=== PATIENT | male | born 1985 | race Hispanic/Latino ===

== ENCOUNTER 2020-05-29 16:20 | Inpatient (IN) | payer BC ==
[~2020-05-29] VITALS: Ht 152.4 cm; Wt 65.8 kg
[2020-05-29 17:06] LABS: BASOPHILS % (AUTO) 0.2 % (0.0-5.0); HEMATOCRIT 39.2 % (42-54); LYMPHOCYTES % (AUTO) 8.2 % (21.0-51.0); MEAN CORPUSCULAR HEMOGLOBIN 27.1 pg (27.0-33.0); MEAN CORPUSCULAR HGB CONC 32.9 g/dL (32.0-36.0); MEAN CORPUSCULAR VOLUME 82.4 fL (79-99); MONOCYTES % (AUTO) 4.2 % (3.0-13.0); NEUTROPHILS % (AUTO) 85.8 % (40.0-77.0); PLATELET COUNT (AUTO) 673 K/uL (130-400); RED BLOOD CELL COUNT(AUTO) 4.76 MIL/uL (4.50-6.20); RED CELL DISTRIBUTION WIDTH 12.3 % (11.0-15.5); WHITE BLOOD COUNT (AUTO) 17.8 K/uL (4.8-10.8)
[2020-05-29 17:22] LABS: CREATININE 3.8 mg/dL (0.5-1.5)
[2020-05-29 17:26] LABS: ALBUMIN 1.2 g/dL (3.5-5.0); BILIRUBIN,TOTAL 0.2 mg/dL (0.2-1.0)
[2020-05-29 17:27] LABS: INR 0.95 (0.85-1.15); PROTHROMBIN TIME 10.4 SEC (9.6-11.6)
[2020-05-29 17:29] LABS: PARTIAL THROMBOPLASTIN TIME 27.3 SEC (26.3-35.5)
[2020-05-29] MEDS ORDERED: ENOXAPARIN SODIUM 80 MG/0.8 ML SQ ONE (18:44)
[2020-05-29] MEDS ORDERED: DEXAMETHASONE SOD PHOSPHATE 10MG/ML 1ML VIAL ONE (18:45)
[2020-05-29] MEDS ORDERED: CEFTRIAXONE 1G VIAL ONE (18:45)
[2020-05-29] MEDS ORDERED: AZITHROMYCIN 500MG+NS 250ML 250 ML IV ONE (18:45)
[2020-05-29] MEDS ORDERED: INSULIN HUMULIN R 100 UNIT/ML 3ML ONE (18:46)
[2020-05-29] MEDS ORDERED: ONDANSETRON 4MG INJ ONE (19:03)
[2020-05-29 19:19] LABS: CRP QUANTITATIVE 190.5 mg/L (0.00-9.0)
[2020-05-29] MEDS ORDERED: GUAIFENESIN-DM 200/20 MG 10 ML PO PRN (19:30)
[2020-05-29] MEDS ORDERED: ONDANSETRON 4MG INJ IV PRN (19:30)
[2020-05-29] MEDS ORDERED: DiphenhydrAMINE HCL 50 MG/ML VIAL IV PRN (19:30)
[2020-05-29] MEDS ORDERED: ALBUTEROL 0.083% 2.5 MG/3 ML INH IH PRN (19:30)
[2020-05-29] MEDS ORDERED: ACETAMINOPHEN 325 MG TAB PO PRN ×2 (19:30)
[2020-05-29] MEDS ORDERED: NITROGLYCERIN 0.4 MG SL TAB SL PRN (19:30)
[2020-05-29] MEDS ORDERED: LACTULOSE 20 GM/30 ML UDCUP PO PRN (19:30)
[2020-05-29] MEDS ORDERED: MAG/ALUM/SIMETH 30 ML UDCUP PO PRN (19:30)
[2020-05-29] MEDS ORDERED: 0.9%NACL 1000ML 1,000 ML IV SCH (19:30)
[2020-05-29] MEDS ORDERED: DIPHENHYDRAMINE HCL 25 MG CAPSULE PO PRN (19:30)
[2020-05-29] MEDS ORDERED: CEFEPIME HCL 1 GM VIAL ONE (20:51)
[2020-05-29] MEDS ORDERED: DOXYCYCLINE 100MG+NS 250ML 250 ML IV ONE (20:52)
[2020-05-29] MEDS ORDERED: ERGOCALCIFEROL (VITAMIN D2) 50,000 UNIT CAPSULE PO SCH (21:16)
[2020-05-29 22:10] VITALS: BP 124/77
[2020-05-29] MEDS: INSULIN GLARGINE 100 UNITS/ML 10 ML VIAL SQ SCH (22:30)
[2020-05-29] MEDS: HEPARIN 5,000 UNIT VIAL SQ SCH (22:30)
[2020-05-29] MEDS ORDERED: DEXTROSE 50%-WATER 50 ML DISP.SYRIN IV PRN (22:30)
[2020-05-29] MEDS: FAMOTIDINE 20MG VIAL IV SCH (22:30)
[2020-05-29] MEDS ORDERED: GLUCAGON 1MG KIT 1 MG ML IM PRN (22:30)
[2020-05-29] MEDS: ASCORBIC ACID 500 MG TAB PO SCH (22:30)
[2020-05-29] MEDS: ACETYLCYSTEINE 600 MG CAPSULE PO SCH (22:30)
[2020-05-30 00:09] VITALS: BP 151/81
[2020-05-30 03:58] LABS: BASOPHILS % (AUTO) 0.1 % (0.0-5.0); HEMATOCRIT 34.7 % (42-54); LYMPHOCYTES % (AUTO) 7.6 % (21.0-51.0); MEAN CORPUSCULAR HEMOGLOBIN 27.2 pg (27.0-33.0); MEAN CORPUSCULAR HGB CONC 33.1 g/dL (32.0-36.0); MONOCYTES % (AUTO) 2.4 % (3.0-13.0); NEUTROPHILS % (AUTO) 88.7 % (40.0-77.0); PLATELET COUNT (AUTO) 628 K/uL (130-400); RED BLOOD CELL COUNT(AUTO) 4.23 MIL/uL (4.50-6.20); RED CELL DISTRIBUTION WIDTH 12.1 % (11.0-15.5); WHITE BLOOD COUNT (AUTO) 14.9 K/uL (4.8-10.8)
[2020-05-30 04:13] VITALS: BP 138/78
[2020-05-30 04:28] LABS: BILIRUBIN,TOTAL 0.2 mg/dL (0.2-1.0); CREATININE 3.5 mg/dL (0.5-1.5); CRP QUANTITATIVE 106.1 mg/L (0.00-9.0); POTASSIUM 4.4 mmol/L (3.5-5.1); TOTAL PROTEIN, SERUM 5.8 g/dL (6.0-8.3)
[2020-05-30] MEDS: INSULIN HUMULIN R 100 UNIT/ML 3ML SQ SCH ×4 (05:37→21:15)
[2020-05-30] MEDS: DEXAMETHASONE SOD PHOSPHATE 4 MG/ML 1ML VIAL IVP SCH ×2 (05:38→17:01)
[2020-05-30 07:47] VITALS: BP 134/83
[2020-05-30] MEDS: FAMOTIDINE 20MG VIAL IV SCH ×2 (08:02→20:59)
[2020-05-30] MEDS: DOXYCYCLINE 100MG+NS 250ML 250 ML IV SCH ×2 (08:02→20:59)
[2020-05-30] MEDS: THIAMINE HCL 100 MG/ML 2ML VIAL IVP SCH (08:03)
[2020-05-30] MEDS: CEFEPIME HCL 2 GM VIAL IVP SCH ×2 (08:04→21:02)
[2020-05-30] MEDS: ACETYLCYSTEINE 600 MG CAPSULE PO SCH ×2 (08:04→21:04)
[2020-05-30] MEDS: ZINC SULFATE 220 CAPSULE PO SCH (08:04)
[2020-05-30] MEDS: ASCORBIC ACID 500 MG TAB PO SCH ×3 (08:28→21:05)
[2020-05-30] MEDS: HEPARIN 5,000 UNIT VIAL SQ SCH ×3 (08:29→21:16)
[2020-05-30] MEDS ORDERED: PHARMACY COMMUNICATION MISC SCH (10:15)
[2020-05-30] MEDS ORDERED: INSULIN GLARGINE 100 UNITS/ML 10 ML VIAL SQ SCH (11:15)
[2020-05-30 12:00] VITALS: BP 136/84
[2020-05-30 15:16] LABS: APPEARANCE,URINE Cloudy (CLEAR); BILIRUBIN,URINE Negative (NEGATIVE); COLOR,URINE Yellow (YELLOW); GLUCOSE, URINE (UA) >=1000 mg/dL (NEGATIVE); KETONES,URINE Negative (NEGATIVE); LEUKOCYTE ESTERASE ,URINE Negative (NEGATIVE); NITRATE,URINE Negative (NEGATIVE); OCCULT BLOOD,URINE Small (NEGATIVE); PROTEIN,URINE 300 mg/dL (NEGATIVE); UROBILINOGEN,URINE 0.2 mg/dL (0.2-1.0)
[2020-05-30 15:47] LABS: BACTERIA,URINE Few /HPF (None Seen); MUCUS,URINE Few LPF (None Seen); SQUAMOUS EPITHELIAL CELL,UR Few /HPF (0-2); YEAST,URINE BUDDING Moderate /HPF (None Seen)
[2020-05-30 16:00] VITALS: BP 135/95
[2020-05-30 17:24] LABS: THYROID STIMULATING HORMONE 0.58 uIU/mL (0.36-3.74); URIC ACID 11.1 mg/dL (2.6-7.2)
[2020-05-30 17:43] LABS: CHLORIDE,URINE RANDOM 41 mmol/L (110-250); POTASSIUM,URINE RANDOM 24 mmol/L (25-125); SODIUM,URINE RANDOM 17 mmol/l (40-220)
[2020-05-30] MEDS ORDERED: TOCILIZUMAB IV SCH (18:00)
[2020-05-30] MEDS ORDERED: [UNRECOGNIZED DRUG - OTHER] IV SCH (18:00)
[2020-05-30] MEDS ORDERED: TOCILIZUMAB IV ONE (18:00)
[2020-05-30 20:00] VITALS: BP 140/83
[2020-05-30] MEDS: INSULIN GLARGINE 100 UNITS/ML 10 ML VIAL SQ SCH (21:16)
[2020-05-31] VITALS (7 sets, daily range): BP systolic 132–151; BP diastolic 75–87
[2020-05-31 04:33] LABS: BASOPHILS % (AUTO) 0.2 % (0.0-5.0); HEMATOCRIT 35.3 % (42-54); LYMPHOCYTES % (AUTO) 5.7 % (21.0-51.0); MEAN CORPUSCULAR HGB CONC 34.6 g/dL (32.0-36.0); MONOCYTES % (AUTO) 4.3 % (3.0-13.0); NEUTROPHILS % (AUTO) 88.1 % (40.0-77.0); NUCLEATED RED BLOOD CELLS 0.1 % (0.0-0.19); RED BLOOD CELL COUNT(AUTO) 4.36 MIL/uL (4.50-6.20); WHITE BLOOD COUNT (AUTO) 16.2 K/uL (4.8-10.8)
[2020-05-31 04:36] LABS: PLATELET COUNT (AUTO) 707 K/uL (130-400)
[2020-05-31 04:56] LABS: ALBUMIN 1.1 g/dL (3.5-5.0); BILIRUBIN,TOTAL 0.2 mg/dL (0.2-1.0); CREATININE 2.6 mg/dL (0.5-1.5); CRP QUANTITATIVE 61.9 mg/L (0.00-9.0); POTASSIUM 4.3 mmol/L (3.5-5.1)
[2020-05-31] MEDS: DEXAMETHASONE SOD PHOSPHATE 4 MG/ML 1ML VIAL IVP SCH (05:13)
[2020-05-31] MEDS: INSULIN HUMULIN R 100 UNIT/ML 3ML SQ SCH ×4 (06:48→21:00)
[2020-05-31] MEDS: CEFEPIME HCL 2 GM VIAL IVP SCH ×2 (08:00→21:19)
[2020-05-31] MEDS: HEPARIN 5,000 UNIT VIAL SQ SCH ×3 (08:01→21:27)
[2020-05-31] MEDS: THIAMINE HCL 100 MG/ML 2ML VIAL IVP SCH (08:03)
[2020-05-31] MEDS: FAMOTIDINE 20MG VIAL IV SCH ×2 (08:03→21:14)
[2020-05-31] MEDS: DOXYCYCLINE 100MG+NS 250ML 250 ML IV SCH ×2 (08:03→21:14)
[2020-05-31] MEDS: ACETYLCYSTEINE 600 MG CAPSULE PO SCH ×2 (08:03→21:20)
[2020-05-31] MEDS: ZINC SULFATE 220 CAPSULE PO SCH (08:03)
[2020-05-31] MEDS: ASCORBIC ACID 500 MG TAB PO SCH ×3 (08:04→21:25)
[2020-05-31] MEDS: INSULIN GLARGINE 100 UNITS/ML 10 ML VIAL SQ SCH ×2 (09:05→21:33)
[2020-05-31] MEDS: INSULIN LISPRO 100 UNIT/ML 3ML SQ SCH ×2 (11:51→17:41)
[2020-06-01 04:28] VITALS: BP 136/75
[2020-06-01 04:49] LABS: BASOPHILS % (AUTO) 0.1 % (0.0-5.0); EOSINOPHILS % (AUTO) 0.1 % (0.0-8.0); HEMATOCRIT 35.3 % (42-54); LYMPHOCYTES % (AUTO) 9.2 % (21.0-51.0); MEAN CORPUSCULAR HEMOGLOBIN 27.4 pg (27.0-33.0); MEAN CORPUSCULAR HGB CONC 33.7 g/dL (32.0-36.0); MEAN CORPUSCULAR VOLUME 81.1 fL (79-99); MONOCYTES % (AUTO) 4.5 % (3.0-13.0); NEUTROPHILS % (AUTO) 84.3 % (40.0-77.0); NUCLEATED RED BLOOD CELLS 0.1 % (0.0-0.19); RED BLOOD CELL COUNT(AUTO) 4.35 MIL/uL (4.50-6.20); RED CELL DISTRIBUTION WIDTH 12.2 % (11.0-15.5); WHITE BLOOD COUNT (AUTO) 14.4 K/uL (4.8-10.8)
[2020-06-01 04:51] LABS: PLATELET COUNT (AUTO) 729 K/uL (130-400)
[2020-06-01 05:15] LABS: ALBUMIN 1.1 g/dL (3.5-5.0); BILIRUBIN,TOTAL 0.2 mg/dL (0.2-1.0); CREATININE 2.2 mg/dL (0.5-1.5); CRP QUANTITATIVE 28.3 mg/L (0.00-9.0); POTASSIUM 3.5 mmol/L (3.5-5.1); TOTAL PROTEIN, SERUM 5.4 g/dL (6.0-8.3)
[2020-06-01] MEDS: INSULIN HUMULIN R 100 UNIT/ML 3ML SQ SCH ×4 (06:45→20:40)
[2020-06-01] MEDS: INSULIN LISPRO 100 UNIT/ML 3ML SQ SCH ×3 (06:53→16:22)
[2020-06-01 08:00] VITALS: BP 132/76
[2020-06-01] MEDS: DOXYCYCLINE 100MG+NS 250ML 250 ML IV SCH ×2 (08:33→20:38)
[2020-06-01] MEDS: DEXAMETHASONE SOD PHOSPHATE 4 MG/ML 1ML VIAL IVP SCH (08:34)
[2020-06-01] MEDS: FAMOTIDINE 20MG VIAL IV SCH ×2 (08:35→20:38)
[2020-06-01] MEDS: THIAMINE HCL 100 MG/ML 2ML VIAL IVP SCH (08:36)
[2020-06-01] MEDS: CEFEPIME HCL 2 GM VIAL IVP SCH ×2 (08:37→20:38)
[2020-06-01] MEDS: ACETYLCYSTEINE 600 MG CAPSULE PO SCH ×2 (08:39→20:38)
[2020-06-01] MEDS: ZINC SULFATE 220 CAPSULE PO SCH (08:39)
[2020-06-01] MEDS: ASCORBIC ACID 500 MG TAB PO SCH ×3 (08:40→20:38)
[2020-06-01] MEDS: INSULIN GLARGINE 100 UNITS/ML 10 ML VIAL SQ SCH ×2 (09:02→20:40)
[2020-06-01] MEDS: HEPARIN 5,000 UNIT VIAL SQ SCH ×3 (09:02→20:39)
[2020-06-01 12:00] VITALS: BP 124/85
[2020-06-01 16:00] VITALS: BP 131/85
[2020-06-01 20:00] VITALS: BP 129/77
[2020-06-02 03:51] LABS: BASOPHILS % (AUTO) 0.2 % (0.0-5.0); EOSINOPHILS % (AUTO) 0.7 % (0.0-8.0); HEMATOCRIT 37.2 % (42-54); LYMPHOCYTES % (AUTO) 11.1 % (21.0-51.0); MEAN CORPUSCULAR HEMOGLOBIN 27.7 pg (27.0-33.0); MEAN CORPUSCULAR HGB CONC 33.6 g/dL (32.0-36.0); MEAN CORPUSCULAR VOLUME 82.3 fL (79-99); MONOCYTES % (AUTO) 4.2 % (3.0-13.0); NEUTROPHILS % (AUTO) 81.3 % (40.0-77.0); RED BLOOD CELL COUNT(AUTO) 4.52 MIL/uL (4.50-6.20); RED CELL DISTRIBUTION WIDTH 12.4 % (11.0-15.5)
[2020-06-02 04:00] VITALS: BP 149/73
[2020-06-02 04:11] LABS: CREATININE 1.8 mg/dL (0.5-1.5); MAGNESIUM 1.6 mg/dL (1.80-2.40); POTASSIUM 3.2 mmol/L (3.5-5.1)
[2020-06-02 04:21] LABS: PLATELET COUNT (AUTO) 779 K/uL (130-400)
[2020-06-02 04:44] LABS: PLATELET MORPHOLOGY COMMENT MARKED INCREASE
[2020-06-02] MEDS: INSULIN HUMULIN R 100 UNIT/ML 3ML SQ SCH ×4 (06:15→20:29)
[2020-06-02] MEDS: INSULIN LISPRO 100 UNIT/ML 3ML SQ SCH ×3 (06:15→16:59)
[2020-06-02 08:00] VITALS: BP 104/82
[2020-06-02] MEDS: DOXYCYCLINE 100MG+NS 250ML 250 ML IV SCH (09:00)
[2020-06-02] MEDS: ZINC SULFATE 220 CAPSULE PO SCH (09:42)
[2020-06-02] MEDS: ACETYLCYSTEINE 600 MG CAPSULE PO SCH (09:42)
[2020-06-02] MEDS: ASCORBIC ACID 500 MG TAB PO SCH ×3 (09:43→20:18)
[2020-06-02] MEDS: HEPARIN 5,000 UNIT VIAL SQ SCH ×3 (09:44→20:18)
[2020-06-02] MEDS: CEFEPIME HCL 2 GM VIAL IVP SCH ×2 (09:44→20:18)
[2020-06-02] MEDS: THIAMINE HCL 100 MG/ML 2ML VIAL IVP SCH (09:45)
[2020-06-02] MEDS: DEXAMETHASONE SOD PHOSPHATE 4 MG/ML 1ML VIAL IVP SCH (09:45)
[2020-06-02] MEDS: FAMOTIDINE 20MG VIAL IV SCH (09:48)
[2020-06-02] MEDS: INSULIN GLARGINE 100 UNITS/ML 10 ML VIAL SQ SCH (10:39)
[2020-06-02] MEDS ORDERED: MAGNESIUM 2GM PREMIX 50ML 50 ML IV PRN (11:30)
[2020-06-02 12:00] VITALS: BP 145/85
[2020-06-02] MEDS: POTASSIUM CHLORIDE 10% ELIXIR 20 MEQ/15 ML UDCUP PO PRN ×2 (12:08→14:33)
[2020-06-02 16:00] VITALS: BP 140/80
[2020-06-02 20:00] VITALS: BP 129/73
[2020-06-03 04:00] VITALS: BP 159/83
[2020-06-03 04:37] LABS: BASOPHILS % (AUTO) 0.3 % (0.0-5.0); EOSINOPHILS % (AUTO) 3.4 % (0.0-8.0); HEMATOCRIT 35.9 % (42-54); LYMPHOCYTES % (AUTO) 12.2 % (21.0-51.0); MEAN CORPUSCULAR HEMOGLOBIN 27.3 pg (27.0-33.0); MEAN CORPUSCULAR HGB CONC 33.4 g/dL (32.0-36.0); MEAN CORPUSCULAR VOLUME 81.8 fL (79-99); MONOCYTES % (AUTO) 2.4 % (3.0-13.0); NEUTROPHILS % (AUTO) 78.7 % (40.0-77.0); RED BLOOD CELL COUNT(AUTO) 4.39 MIL/uL (4.50-6.20); RED CELL DISTRIBUTION WIDTH 12.7 % (11.0-15.5); WHITE BLOOD COUNT (AUTO) 15.8 K/uL (4.8-10.8)
[2020-06-03 04:39] LABS: PLATELET COUNT (AUTO) 705 K/uL (130-400)
[2020-06-03 04:46] LABS: APPEARANCE,URINE Cloudy (CLEAR); BILIRUBIN,URINE Negative (NEGATIVE); COLOR,URINE Yellow (YELLOW); GLUCOSE, URINE (UA) 500 mg/dL (NEGATIVE); KETONES,URINE Negative (NEGATIVE); LEUKOCYTE ESTERASE ,URINE Negative (NEGATIVE); NITRATE,URINE Negative (NEGATIVE); OCCULT BLOOD,URINE Negative (NEGATIVE); PROTEIN,URINE >=1000 mg/dL (NEGATIVE); UROBILINOGEN,URINE 0.2 mg/dL (0.2-1.0)
[2020-06-03 04:51] LABS: CREATININE 1.4 mg/dL (0.5-1.5); MAGNESIUM 1.9 mg/dL (1.80-2.40); POTASSIUM 3.9 mmol/L (3.5-5.1)
[2020-06-03 05:04] LABS: RBC,URINE None Seen /HPF (0-1)
[2020-06-03 05:05] LABS: AMORPHOUS SEDIMENT,UR Many /LPF (None Seen); BACTERIA,URINE Few /HPF (None Seen); MUCUS,URINE Few LPF (None Seen); SQUAMOUS EPITHELIAL CELL,UR Few /HPF (0-2); YEAST,URINE BUDDING Moderate /HPF (None Seen)
[2020-06-03 05:37] LABS: CRP QUANTITATIVE 13.2 mg/L (0.00-9.0)
[2020-06-03] MEDS: INSULIN LISPRO 100 UNIT/ML 3ML SQ SCH ×3 (06:09→16:42)
[2020-06-03] MEDS: INSULIN HUMULIN R 100 UNIT/ML 3ML SQ SCH ×4 (06:10→20:45)
[2020-06-03 08:00] VITALS: BP 135/78
[2020-06-03] MEDS: THIAMINE HCL 100 MG/ML 2ML VIAL IVP SCH (08:43)
[2020-06-03] MEDS: DEXAMETHASONE SOD PHOSPHATE 4 MG/ML 1ML VIAL IVP SCH (08:44)
[2020-06-03] MEDS: ASCORBIC ACID 500 MG TAB PO SCH (08:45)
[2020-06-03] MEDS: ZINC SULFATE 220 CAPSULE PO SCH (08:46)
[2020-06-03] MEDS ORDERED: FAMOTIDINE 20MG TAB PO SCH (09:00)
[2020-06-03] MEDS ORDERED: INSULIN GLARGINE 100 UNITS/ML 10 ML VIAL SQ SCH ×2 (09:00→12:30)
[2020-06-03] MEDS: CEFEPIME HCL 2 GM VIAL IVP SCH (09:00)
[2020-06-03] MEDS: ENOXAPARIN SODIUM 30 MG/0.3 ML SQ SCH ×2 (11:22→20:36)
[2020-06-03 12:00] VITALS: BP 152/81
[2020-06-03] MEDS ORDERED: DOCUSATE SODIUM 100 MG CAP PO SCH (12:15)
[2020-06-03] MEDS: SENNOSIDES 8.6 MG TABLET PO SCH (12:16)
[2020-06-03] MEDS ORDERED: POLYETHYLENE GLYCOL 3350 17 GM POWD.PACK PO SCH (12:16)
[2020-06-03] MEDS: PANTOPRAZOLE 40 MG TAB DR PO SCH (12:17)
[2020-06-03] MEDS: MAGNESIUM OXIDE 400 MG TABLET PO SCH (12:23)
[2020-06-03] MEDS: SODIUM CHLORIDE 30 ML DROPS NS SCH ×2 (15:12→20:33)
[2020-06-03 16:00] VITALS: BP 158/82
[2020-06-03] MEDS ORDERED: PHARMACY COMMUNICATION MISC SCH (16:00)
[2020-06-03 20:00] VITALS: BP 141/77
[2020-06-03] MEDS ORDERED: REMDESIVIR (EUA) 520 200 MG in 0.9% NACL 250ML 250 ML IV ONE (20:00)
[2020-06-03] MEDS ORDERED: COMPOUND IV REFRIGERATED 1 EACH IVSOLN MISC PRN (20:00)
[2020-06-03] MEDS: FLUTICASONE PROPIONATE 50MCG/SPRAY 16 GM BOTTLE EN SCH (20:33)
[2020-06-04 03:41] LABS: BASOPHILS % (AUTO) 0.1 % (0.0-5.0); EOSINOPHILS % (AUTO) 3.2 % (0.0-8.0); HEMATOCRIT 35.2 % (42-54); LYMPHOCYTES % (AUTO) 5.9 % (21.0-51.0); MEAN CORPUSCULAR HEMOGLOBIN 27.9 pg (27.0-33.0); MEAN CORPUSCULAR HGB CONC 34.1 g/dL (32.0-36.0); MEAN CORPUSCULAR VOLUME 81.9 fL (79-99); MONOCYTES % (AUTO) 2.6 % (3.0-13.0); NEUTROPHILS % (AUTO) 85.9 % (40.0-77.0); PLATELET COUNT (AUTO) 645 K/uL (130-400); RED CELL DISTRIBUTION WIDTH 12.9 % (11.0-15.5); WHITE BLOOD COUNT (AUTO) 15.2 K/uL (4.8-10.8)
[2020-06-04 04:00] VITALS: BP 133/77
[2020-06-04 04:00] LABS: CREATININE 1.6 mg/dL (0.5-1.5); CRP QUANTITATIVE 10.9 mg/L (0.00-9.0); POTASSIUM 4.8 mmol/L (3.5-5.1)
[2020-06-04] MEDS: INSULIN LISPRO 100 UNIT/ML 3ML SQ SCH ×3 (05:48→16:56)
[2020-06-04] MEDS: INSULIN HUMULIN R 100 UNIT/ML 3ML SQ SCH ×4 (05:48→21:06)
[2020-06-04 08:00] VITALS: BP 123/76
[2020-06-04] MEDS: INSULIN GLARGINE 100 UNITS/ML 10 ML VIAL SQ SCH (08:13)
[2020-06-04] MEDS: MAGNESIUM OXIDE 400 MG TABLET PO SCH (08:19)
[2020-06-04] MEDS: SENNOSIDES 8.6 MG TABLET PO SCH (08:19)
[2020-06-04] MEDS: PANTOPRAZOLE 40 MG TAB DR PO SCH (08:19)
[2020-06-04] MEDS: SODIUM CHLORIDE 30 ML DROPS NS SCH ×3 (08:19→20:52)
[2020-06-04] MEDS: FLUTICASONE PROPIONATE 50MCG/SPRAY 16 GM BOTTLE EN SCH ×2 (08:19→20:52)
[2020-06-04] MEDS: DEXAMETHASONE SOD PHOSPHATE 4 MG/ML 1ML VIAL IVP SCH (08:20)
[2020-06-04] MEDS: ENOXAPARIN SODIUM 30 MG/0.3 ML SQ SCH ×2 (08:20→21:07)
[2020-06-04 13:00] VITALS: BP 130/75
[2020-06-04 14:59] LABS: ALANINE AMINOTRANSFERASE 36 U/L (12-78); ALBUMIN 1.3 g/dL (3.5-5.0); ASPARTATE AMINOTRANSFERASE 47 U/L (10-37); BILIRUBIN,DIRECT < 0.1 mg/dL (0.0-0.3); BILIRUBIN,TOTAL 0.1 mg/dL (0.2-1.0); TOTAL PROTEIN, SERUM 5.2 g/dL (6.0-8.3)
[2020-06-04] MEDS ORDERED: INSULIN HUMULIN R 100 UNIT/ML 3ML SQ SCH (15:00)
[2020-06-04 16:00] VITALS: BP 134/71
[2020-06-04 20:15] VITALS: BP 117/71
[2020-06-04] MEDS: REMDESIVIR LABS MISC SCH (20:30)
[2020-06-04] MEDS: REMDESIVIR (EUA) 520 100 MG in 0.9% NACL 250ML 250 ML IV SCH (21:07)
[2020-06-05] VITALS: BP 113/60
[2020-06-05 03:30] VITALS: BP 135/70
[2020-06-05 03:39] LABS: BASOPHILS % (AUTO) 0.1 % (0.0-5.0); EOSINOPHILS % (AUTO) 2.7 % (0.0-8.0); HEMATOCRIT 35.7 % (42-54); LYMPHOCYTES % (AUTO) 13.8 % (21.0-51.0); MEAN CORPUSCULAR HEMOGLOBIN 27.4 pg (27.0-33.0); MEAN CORPUSCULAR HGB CONC 33.1 g/dL (32.0-36.0); MEAN CORPUSCULAR VOLUME 82.8 fL (79-99); MONOCYTES % (AUTO) 3.8 % (3.0-13.0); NEUTROPHILS % (AUTO) 77.4 % (40.0-77.0); PLATELET COUNT (AUTO) 684 K/uL (130-400); RED BLOOD CELL COUNT(AUTO) 4.31 MIL/uL (4.50-6.20); RED CELL DISTRIBUTION WIDTH 13.1 % (11.0-15.5); WHITE BLOOD COUNT (AUTO) 17.2 K/uL (4.8-10.8)
[2020-06-05 03:55] LABS: ALANINE AMINOTRANSFERASE 37 U/L (12-78); ALBUMIN 1.3 g/dL (3.5-5.0); ASPARTATE AMINOTRANSFERASE 31 U/L (10-37); BILIRUBIN,DIRECT < 0.1 mg/dL (0.0-0.3); BILIRUBIN,TOTAL 0.1 mg/dL (0.2-1.0); CARBON DIOXIDE 25 mmol/L (21-32); CHLORIDE 103 mmol/L (101-111); CREATININE 1.4 mg/dL (0.5-1.5); GLOMERULAR FILTR. RATE CALC 62 mL/min (>60); GLUCOSE,RANDOM 63 mg/dL (70-105); LACTATE DEHYDROGENASE 470 U/L (81-234); SODIUM SERUM 137 mmol/L (136-145); TOTAL PROTEIN, SERUM 5.1 g/dL (6.0-8.3); UREA NITROGEN, BLOOD 44 mg/dL (7-18)
[2020-06-05] MEDS: REMDESIVIR LABS MISC SCH (04:14)
[2020-06-05] MEDS: INSULIN HUMULIN R 100 UNIT/ML 3ML SQ SCH ×4 (07:30→20:45)
[2020-06-05] MEDS: MAGNESIUM OXIDE 400 MG TABLET PO SCH (08:26)
[2020-06-05] MEDS: SENNOSIDES 8.6 MG TABLET PO SCH (08:26)
[2020-06-05] MEDS: PANTOPRAZOLE 40 MG TAB DR PO SCH (08:26)
[2020-06-05] MEDS: DEXAMETHASONE SOD PHOSPHATE 4 MG/ML 1ML VIAL IVP SCH (08:26)
[2020-06-05] MEDS: ENOXAPARIN SODIUM 30 MG/0.3 ML SQ SCH (08:27)
[2020-06-05] MEDS: INSULIN LISPRO 100 UNIT/ML 3ML SQ SCH ×3 (08:34→16:46)
[2020-06-05] MEDS: INSULIN GLARGINE 100 UNITS/ML 10 ML VIAL SQ SCH (08:41)
[2020-06-05] MEDS: SODIUM CHLORIDE 30 ML DROPS NS SCH ×3 (08:43→21:14)
[2020-06-05] MEDS: FLUTICASONE PROPIONATE 50MCG/SPRAY 16 GM BOTTLE EN SCH ×2 (08:43→21:14)
[2020-06-05] MEDS ORDERED: ENOXAPARIN SODIUM 60 MG/0.6 ML SQ SCH (11:34)
[2020-06-05] MEDS: REMDESIVIR (EUA) 520 100 MG in 0.9% NACL 250ML 250 ML IV SCH (14:11)
[2020-06-05 16:29] VITALS: BP 145/88
[2020-06-05 19:00] VITALS: BP 124/79
[2020-06-05] MEDS: CETIRIZINE HCL 5 MG TABLET PO SCH (21:13)
[2020-06-05 23:00] VITALS: BP 135/79
[2020-06-06 03:00] VITALS: BP 103/54
[2020-06-06 04:55] LABS: BASOPHILS % (AUTO) 0.3 % (0.0-5.0); EOSINOPHILS % (AUTO) 3.2 % (0.0-8.0); HEMATOCRIT 35.1 % (42-54); LYMPHOCYTES % (AUTO) 14.9 % (21.0-51.0); MEAN CORPUSCULAR HEMOGLOBIN 27.8 pg (27.0-33.0); MEAN CORPUSCULAR HGB CONC 33.3 g/dL (32.0-36.0); MEAN CORPUSCULAR VOLUME 83.4 fL (79-99); MONOCYTES % (AUTO) 3.8 % (3.0-13.0); NEUTROPHILS % (AUTO) 76.3 % (40.0-77.0); PLATELET COUNT (AUTO) 616 K/uL (130-400); RED BLOOD CELL COUNT(AUTO) 4.21 MIL/uL (4.50-6.20); RED CELL DISTRIBUTION WIDTH 13.1 % (11.0-15.5); WHITE BLOOD COUNT (AUTO) 15.2 K/uL (4.8-10.8)
[2020-06-06 05:23] LABS: ALANINE AMINOTRANSFERASE 33 U/L (12-78); ALBUMIN 1.3 g/dL (3.5-5.0); ASPARTATE AMINOTRANSFERASE 26 U/L (10-37); BILIRUBIN,DIRECT < 0.1 mg/dL (0.0-0.3); BILIRUBIN,TOTAL 0.1 mg/dL (0.2-1.0); CARBON DIOXIDE 25 mmol/L (21-32); CHLORIDE 103 mmol/L (101-111); CREATININE 1.4 mg/dL (0.5-1.5); GLOMERULAR FILTR. RATE CALC 62 mL/min (>60); GLUCOSE,RANDOM 183 mg/dL (70-105); LACTATE DEHYDROGENASE 457 U/L (81-234); POTASSIUM 4.3 mmol/L (3.5-5.1); SODIUM SERUM 137 mmol/L (136-145); TOTAL PROTEIN, SERUM 4.9 g/dL (6.0-8.3); UREA NITROGEN, BLOOD 38 mg/dL (7-18)
[2020-06-06] MEDS: REMDESIVIR LABS MISC SCH (06:00)
[2020-06-06] MEDS: INSULIN LISPRO 100 UNIT/ML 3ML SQ SCH ×3 (07:58→16:58)
[2020-06-06] MEDS: INSULIN HUMULIN R 100 UNIT/ML 3ML SQ SCH ×4 (07:59→20:14)
[2020-06-06] MEDS: PANTOPRAZOLE 40 MG TAB DR PO SCH (08:00)
[2020-06-06] MEDS: SENNOSIDES 8.6 MG TABLET PO SCH (08:00)
[2020-06-06] MEDS: MAGNESIUM OXIDE 400 MG TABLET PO SCH (08:00)
[2020-06-06] MEDS: INSULIN GLARGINE 100 UNITS/ML 10 ML VIAL SQ SCH (08:00)
[2020-06-06] MEDS: DEXAMETHASONE SOD PHOSPHATE 4 MG/ML 1ML VIAL IVP SCH (08:01)
[2020-06-06] MEDS: FLUTICASONE PROPIONATE 50MCG/SPRAY 16 GM BOTTLE EN SCH ×2 (08:01→20:06)
[2020-06-06] MEDS: SODIUM CHLORIDE 30 ML DROPS NS SCH ×3 (08:02→20:06)
[2020-06-06 08:10] VITALS: BP 131/80
[2020-06-06 11:58] VITALS: BP 145/82
[2020-06-06] MEDS: REMDESIVIR (EUA) 520 100 MG in 0.9% NACL 250ML 250 ML IV SCH (15:31)
[2020-06-06 16:41] VITALS: BP 135/76
[2020-06-06] MEDS ORDERED: 0.9%NACL 50ML 50 ML IV ONE (17:40)
[2020-06-06 19:25] VITALS: BP 114/68
[2020-06-06] MEDS: CETIRIZINE HCL 5 MG TABLET PO SCH (20:09)
[2020-06-06] MEDS ORDERED: INSULIN GLARGINE 100 UNITS/ML 10 ML VIAL SQ ONE (21:45)
[2020-06-07] VITALS: BP 148/82
[2020-06-07 04:00] VITALS: BP 145/84
[2020-06-07 04:10] LABS: ALANINE AMINOTRANSFERASE 39 U/L (12-78); ALBUMIN 1.4 g/dL (3.5-5.0); ASPARTATE AMINOTRANSFERASE 28 U/L (10-37); BILIRUBIN,DIRECT < 0.1 mg/dL (0.0-0.3); BILIRUBIN,TOTAL 0.1 mg/dL (0.2-1.0); LACTATE DEHYDROGENASE 467 U/L (81-234); TOTAL PROTEIN, SERUM 5.6 g/dL (6.0-8.3)
[2020-06-07 05:55] LABS: BASOPHILS % (AUTO) 0.3 % (0.0-5.0); EOSINOPHILS % (AUTO) 1.2 % (0.0-8.0); HEMATOCRIT 36.6 % (42-54); LYMPHOCYTES % (AUTO) 11.2 % (21.0-51.0); MEAN CORPUSCULAR HEMOGLOBIN 27.4 pg (27.0-33.0); MEAN CORPUSCULAR HGB CONC 32.2 g/dL (32.0-36.0); MEAN CORPUSCULAR VOLUME 84.9 fL (79-99); MONOCYTES % (AUTO) 4.8 % (3.0-13.0); NEUTROPHILS % (AUTO) 80.8 % (40.0-77.0); PLATELET COUNT (AUTO) 662 K/uL (130-400); RED BLOOD CELL COUNT(AUTO) 4.31 MIL/uL (4.50-6.20); RED CELL DISTRIBUTION WIDTH 12.9 % (11.0-15.5); WHITE BLOOD COUNT (AUTO) 19.8 K/uL (4.8-10.8)
[2020-06-07] MEDS: REMDESIVIR LABS MISC SCH (06:00)
[2020-06-07 06:01] LABS: CREATININE 1.2 mg/dL (0.5-1.5); POTASSIUM 4.1 mmol/L (3.5-5.1)
[2020-06-07] MEDS: INSULIN HUMULIN R 100 UNIT/ML 3ML SQ SCH ×7 (07:30→21:12)
[2020-06-07 08:00] VITALS: BP 120/81
[2020-06-07] MEDS: DEXAMETHASONE SOD PHOSPHATE 4 MG/ML 1ML VIAL IVP SCH (08:20)
[2020-06-07] MEDS: PANTOPRAZOLE 40 MG TAB DR PO SCH (08:20)
[2020-06-07] MEDS: SENNOSIDES 8.6 MG TABLET PO SCH (08:20)
[2020-06-07] MEDS: FLUTICASONE PROPIONATE 50MCG/SPRAY 16 GM BOTTLE EN SCH ×2 (09:20→20:25)
[2020-06-07] MEDS: SODIUM CHLORIDE 30 ML DROPS NS SCH ×3 (09:23→20:25)
[2020-06-07] MEDS: MAGNESIUM OXIDE 400 MG TABLET PO SCH (09:44)
[2020-06-07 12:00] VITALS: BP 155/96
[2020-06-07] MEDS: REMDESIVIR (EUA) 520 100 MG in 0.9% NACL 250ML 250 ML IV SCH (15:30)
[2020-06-07 16:00] VITALS: BP 156/87
[2020-06-07 20:00] VITALS: BP 145/83
[2020-06-07] MEDS: CETIRIZINE HCL 5 MG TABLET PO SCH (21:10)
[2020-06-08] VITALS: BP 123/62
[2020-06-08 04:00] VITALS: BP 141/70
[2020-06-08 04:11] LABS: ALBUMIN 1.4 g/dL (3.5-5.0); BILIRUBIN,DIRECT 0.1 mg/dL (0.0-0.3); BILIRUBIN,TOTAL 0.2 mg/dL (0.2-1.0); CRP QUANTITATIVE 9.8 mg/L (0.00-9.0); TOTAL PROTEIN, SERUM 5.2 g/dL (6.0-8.3)
[2020-06-08 04:59] LABS: CREATININE 1.2 mg/dL (0.5-1.5); POTASSIUM 4.3 mmol/L (3.5-5.1)
[2020-06-08 05:04] LABS: BASOPHILS % (AUTO) 0.3 % (0.0-5.0); HEMATOCRIT 36.5 % (42-54); LYMPHOCYTES % (AUTO) 13.1 % (21.0-51.0); MEAN CORPUSCULAR HEMOGLOBIN 27.8 pg (27.0-33.0); MEAN CORPUSCULAR HGB CONC 33.2 g/dL (32.0-36.0); MEAN CORPUSCULAR VOLUME 83.9 fL (79-99); MONOCYTES % (AUTO) 6.4 % (3.0-13.0); NEUTROPHILS % (AUTO) 77.9 % (40.0-77.0); PLATELET COUNT (AUTO) 639 K/uL (130-400); RED BLOOD CELL COUNT(AUTO) 4.35 MIL/uL (4.50-6.20); WHITE BLOOD COUNT (AUTO) 19.7 K/uL (4.8-10.8)
[2020-06-08] MEDS: REMDESIVIR LABS MISC SCH (06:00)
[2020-06-08] MEDS: INSULIN HUMULIN R 100 UNIT/ML 3ML SQ SCH ×7 (06:17→21:00)
[2020-06-08] MEDS: PANTOPRAZOLE 40 MG TAB DR PO SCH (07:59)
[2020-06-08 08:00] VITALS: BP 108/46
[2020-06-08] MEDS ORDERED: INSULIN GLARGINE 100 UNITS/ML 10 ML VIAL SQ SCH (08:00)
[2020-06-08] MEDS: SENNOSIDES 8.6 MG TABLET PO SCH (08:00)
[2020-06-08] MEDS: DEXAMETHASONE SOD PHOSPHATE 4 MG/ML 1ML VIAL IVP SCH (08:00)
[2020-06-08] MEDS: FLUTICASONE PROPIONATE 50MCG/SPRAY 16 GM BOTTLE EN SCH ×2 (08:12→20:39)
[2020-06-08] MEDS: SODIUM CHLORIDE 30 ML DROPS NS SCH ×3 (08:13→20:39)
[2020-06-08] MEDS: MAGNESIUM OXIDE 400 MG TABLET PO SCH (09:22)
[2020-06-08 12:00] VITALS: BP 131/78
[2020-06-08 16:00] VITALS: BP 137/86
[2020-06-08 20:00] VITALS: BP 143/92
[2020-06-08] MEDS: CETIRIZINE HCL 5 MG TABLET PO SCH (21:19)
[2020-06-08] MEDS: ENOXAPARIN SODIUM 40 MG/0.4 ML SYRINGE SQ SCH (21:20)
[2020-06-09] VITALS: BP 127/73
[2020-06-09 04:00] VITALS: BP 117/68
[2020-06-09] MEDS: INSULIN HUMULIN R 100 UNIT/ML 3ML SQ SCH ×7 (05:49→23:24)
[2020-06-09 06:11] LABS: BASOPHILS % (AUTO) 0.3 % (0.0-5.0); EOSINOPHILS % (AUTO) 1.4 % (0.0-8.0); HEMATOCRIT 35.6 % (42-54); LYMPHOCYTES % (AUTO) 16.1 % (21.0-51.0); MEAN CORPUSCULAR HEMOGLOBIN 27.6 pg (27.0-33.0); MEAN CORPUSCULAR HGB CONC 32.9 g/dL (32.0-36.0); MONOCYTES % (AUTO) 5.5 % (3.0-13.0); NEUTROPHILS % (AUTO) 75.5 % (40.0-77.0); PLATELET COUNT (AUTO) 556 K/uL (130-400); RED BLOOD CELL COUNT(AUTO) 4.24 MIL/uL (4.50-6.20); RED CELL DISTRIBUTION WIDTH 13.1 % (11.0-15.5); WHITE BLOOD COUNT (AUTO) 17.4 K/uL (4.8-10.8)
[2020-06-09 06:45] LABS: ALBUMIN 1.3 g/dL (3.5-5.0); BILIRUBIN,TOTAL 0.2 mg/dL (0.2-1.0); CREATININE 1.4 mg/dL (0.5-1.5); CRP QUANTITATIVE 15.8 mg/L (0.00-9.0); POTASSIUM 4.3 mmol/L (3.5-5.1); TOTAL PROTEIN, SERUM 4.8 g/dL (6.0-8.3)
[2020-06-09 08:01] VITALS: BP 105/71
[2020-06-09] MEDS: PANTOPRAZOLE 40 MG TAB DR PO SCH (08:08)
[2020-06-09] MEDS: MAGNESIUM OXIDE 400 MG TABLET PO SCH (08:09)
[2020-06-09] MEDS: DEXAMETHASONE SOD PHOSPHATE 4 MG/ML 1ML VIAL IVP SCH (08:09)
[2020-06-09] MEDS: ENOXAPARIN SODIUM 40 MG/0.4 ML SYRINGE SQ SCH ×2 (08:09→22:53)
[2020-06-09] MEDS: INSULIN GLARGINE 100 UNITS/ML 10 ML VIAL SQ SCH (08:11)
[2020-06-09] MEDS: SODIUM CHLORIDE 30 ML DROPS NS SCH ×3 (08:12→22:46)
[2020-06-09] MEDS: FLUTICASONE PROPIONATE 50MCG/SPRAY 16 GM BOTTLE EN SCH ×2 (08:12→22:45)
[2020-06-09] MEDS: SENNOSIDES 8.6 MG TABLET PO SCH (08:12)
[2020-06-09 12:01] VITALS: BP 115/75
[2020-06-09 16:02] VITALS: BP 121/73
[2020-06-09 20:00] VITALS: BP 117/73
[2020-06-09] MEDS: CETIRIZINE HCL 5 MG TABLET PO SCH (22:51)
[2020-06-10] VITALS: BP 131/76
[2020-06-10 04:00] VITALS: BP 115/67
[2020-06-10] MEDS: INSULIN HUMULIN R 100 UNIT/ML 3ML SQ SCH ×6 (06:11→17:00)
[2020-06-10] MEDS: PANTOPRAZOLE 40 MG TAB DR PO SCH (06:18)
[2020-06-10 06:26] LABS: CREATININE 1.4 mg/dL (0.5-1.5); CRP QUANTITATIVE 26.4 mg/L (0.00-9.0); MAGNESIUM 1.9 mg/dL (1.80-2.40); POTASSIUM 4.2 mmol/L (3.5-5.1)
[2020-06-10 06:59] LABS: BASOPHILS % (AUTO) 0.2 % (0.0-5.0); EOSINOPHILS % (AUTO) 1.3 % (0.0-8.0); HEMATOCRIT 33.9 % (42-54); LYMPHOCYTES % (AUTO) 17.3 % (21.0-51.0); MEAN CORPUSCULAR HGB CONC 33.3 g/dL (32.0-36.0); MEAN CORPUSCULAR VOLUME 84.1 fL (79-99); NEUTROPHILS % (AUTO) 74.1 % (40.0-77.0); PLATELET COUNT (AUTO) 527 K/uL (130-400); RED BLOOD CELL COUNT(AUTO) 4.03 MIL/uL (4.50-6.20); RED CELL DISTRIBUTION WIDTH 13.2 % (11.0-15.5); WHITE BLOOD COUNT (AUTO) 16.2 K/uL (4.8-10.8)
[2020-06-10 08:01] VITALS: BP 112/79
[2020-06-10] MEDS: SODIUM CHLORIDE 30 ML DROPS NS SCH ×2 (08:40→15:18)
[2020-06-10] MEDS: INSULIN GLARGINE 100 UNITS/ML 10 ML VIAL SQ SCH (08:40)
[2020-06-10] MEDS: FLUTICASONE PROPIONATE 50MCG/SPRAY 16 GM BOTTLE EN SCH (08:40)
[2020-06-10] MEDS ORDERED: DEXAMETHASONE 4 MG TAB PO SCH (09:00)
[2020-06-10] MEDS: SENNOSIDES 8.6 MG TABLET PO SCH (09:13)
[2020-06-10] MEDS: ENOXAPARIN SODIUM 40 MG/0.4 ML SYRINGE SQ SCH (09:13)
[2020-06-10] MEDS: MAGNESIUM OXIDE 400 MG TABLET PO SCH (09:22)
[2020-06-10 12:04] VITALS: BP 115/72
[2020-06-10 16:00] VITALS: BP 125/83
[2020-06-10] MEDS ORDERED: APIX2.5T PO (16:13)
[2020-06-10] MEDS ORDERED: PANT40TA55 PO (16:13)
[2020-06-10] MEDS ORDERED: DEXA6TAB PO (16:13)
== END 2020-06-10 18:26 | disposition home or self-care (01) | DRG 871 ==
LOC: EDH 16:20 → EDHIP 19:18 → 2AH 22:05 → 2BH 06-06 20:39 → 2AH 06-10 12:51 → 2BH 06-10 13:05 → 2AH 06-10 13:07
PROVIDERS: ADMIT Family Medicine; ATTEND Family Medicine
PROC: 5A0935A Assistance with Respiratory Ventilation, Less than 24 Consecutive Hours, High Flow/Velocity Cannula (ICD-10-PCS; 2020-05-29)
PROC: XW033H5 Introduction of Tocilizumab into Peripheral Vein, Percutaneous Approach, New Technology Group 5 (ICD-10-PCS; 2020-05-30)
PROC: 5A0935A Assistance with Respiratory Ventilation, Less than 24 Consecutive Hours, High Flow/Velocity Cannula (ICD-10-PCS; 2020-05-30)
PROC: 5A0935A Assistance with Respiratory Ventilation, Less than 24 Consecutive Hours, High Flow/Velocity Cannula (ICD-10-PCS; 2020-05-31)
PROC: 5A0935A Assistance with Respiratory Ventilation, Less than 24 Consecutive Hours, High Flow/Velocity Cannula (ICD-10-PCS; 2020-06-01)
PROC: 5A0935A Assistance with Respiratory Ventilation, Less than 24 Consecutive Hours, High Flow/Velocity Cannula (ICD-10-PCS; 2020-06-02)
PROC: XW033E5 Introduction of Remdesivir Anti-infective into Peripheral Vein, Percutaneous Approach, New Technology Group 5 (ICD-10-PCS; principal; 2020-06-03)
PROC: 5A0935A Assistance with Respiratory Ventilation, Less than 24 Consecutive Hours, High Flow/Velocity Cannula (ICD-10-PCS; 2020-06-03)
PROC: 5A0935A Assistance with Respiratory Ventilation, Less than 24 Consecutive Hours, High Flow/Velocity Cannula (ICD-10-PCS; 2020-06-04)
PROC: 5A0935A Assistance with Respiratory Ventilation, Less than 24 Consecutive Hours, High Flow/Velocity Cannula (ICD-10-PCS; 2020-06-05)
PROC: 5A0935A Assistance with Respiratory Ventilation, Less than 24 Consecutive Hours, High Flow/Velocity Cannula (ICD-10-PCS; 2020-06-06)
PROC: 5A0935A Assistance with Respiratory Ventilation, Less than 24 Consecutive Hours, High Flow/Velocity Cannula (ICD-10-PCS; 2020-06-07)
PROC: 5A0935A Assistance with Respiratory Ventilation, Less than 24 Consecutive Hours, High Flow/Velocity Cannula (ICD-10-PCS; 2020-06-08)
PROC: 5A0935A Assistance with Respiratory Ventilation, Less than 24 Consecutive Hours, High Flow/Velocity Cannula (ICD-10-PCS; 2020-06-09)
PROC: 5A0935A Assistance with Respiratory Ventilation, Less than 24 Consecutive Hours, High Flow/Velocity Cannula (ICD-10-PCS; 2020-06-10)
DX: A41.89 Other specified sepsis (principal); U07.1 COVID-19; J12.82 Pneumonia due to coronavirus disease 2019; J80 Acute respiratory distress syndrome; N17.9 Acute kidney failure, unspecified; D68.69 Other thrombophilia; E87.1 Hypo-osmolality and hyponatremia; N13.30 Unspecified hydronephrosis; N18.4 Chronic kidney disease, stage 4 (severe); E11.22 Type 2 diabetes mellitus with diabetic chronic kidney disease; D64.9 Anemia, unspecified; E11.319 Type 2 diabetes mellitus with unspecified diabetic retinopathy without macular edema; E11.649 Type 2 diabetes mellitus with hypoglycemia without coma; E11.65 Type 2 diabetes mellitus with hyperglycemia; T38.0X5A Adverse effect of glucocorticoids and synthetic analogues, initial encounter; Y92.239 Unspecified place in hospital as the place of occurrence of the external cause; E83.42 Hypomagnesemia; E87.6 Hypokalemia; E11.42 Type 2 diabetes mellitus with diabetic polyneuropathy; I12.9 Hypertensive chronic kidney disease with stage 1 through stage 4 chronic kidney disease, or unspecified chronic kidney disease; R65.20 Severe sepsis without septic shock; D47.3 Essential (hemorrhagic) thrombocythemia; Z79.4 Long term (current) use of insulin
CPT/HCPCS: 36415; 71045; 71250; 74176; 76775; 80048; 80053; 80076; 81001; 82436; 82550; 82570; 82728; 82947; 82948; 83036; 83615; 83735; 83935; 84133; 84145; 84156; 84300; 84443; 84484; 84550; 85025; 85378; 85610; 85730; 86140; 86156; 86900; 86901; 87040; 87088; 87426; 87637; 93005; 93970; 94760; 99291; G0378; J0456; J0692; J0696; J1100; J1644; J1650; J1815; J2405; J3411; J3475; J3490; J7030; J7050; J7070; J8540; U0003

== ENCOUNTER 2023-06-26 19:31 | Emergency (ER) | payer BC, OTHER ==
[~2023-06-26] VITALS: Ht 152.4 cm; Wt 74.8 kg
[~2023-06-26 19:31] MED LIST: APIX2.5T PO; DEXA6TAB PO; PANT40TA55 PO
[2023-06-26 19:52] VITALS: BP 140/71; PULSE 79; RESP 18
[2023-06-26 20:35] LABS: BASOPHILS # (AUTO) 0.06 K/uL (0.00-0.20); BASOPHILS % (AUTO) 0.6 % (0.0-5.0); EOSINOPHILS # (AUTO) 0.47 K/uL (0.00-0.70); EOSINOPHILS % (AUTO) 4.5 % (0.0-8.0); HEMATOCRIT 33.8 % (42-54); IMMATURE GRANULOCYTE ABSOLUTE 0.05 K/uL (0-1); MEAN CORPUSCULAR HEMOGLOBIN 27.8 pg (27.0-33.0); MEAN CORPUSCULAR HGB CONC 32.5 g/dL (32.0-36.0); MEAN CORPUSCULAR VOLUME 85.6 fL (79-99); MONOCYTES # (AUTO) 0.9 K/uL (0.1-1.0); NEUTROPHILS # (AUTO) 5.9 K/uL (1.8-7.7); NEUTROPHILS % (AUTO) 56.4 % (40.0-77.0); PLATELET COUNT (AUTO) 349 K/uL (130-400); RED BLOOD CELL COUNT(AUTO) 3.95 MIL/uL (4.50-6.20); WHITE BLOOD COUNT (AUTO) 10.4 K/uL (4.8-10.8)
[2023-06-26 20:51] LABS: CREATININE 4.1 mg/dL (0.5-1.3); POTASSIUM 4.6 mmol/L (3.5-5.1)
[2023-06-26 20:55] LABS: ALBUMIN 2.8 g/dL (3.5-5.0); BILIRUBIN,TOTAL 0.2 mg/dL (0.2-1.0); TOTAL PROTEIN, SERUM 6.6 g/dL (6.0-8.3)
== END 2023-06-26 21:46 | disposition left against medical advice (07) ==
LOC: EDH 19:31
DX: R79.9 Abnormal finding of blood chemistry, unspecified (principal); Z53.21 Procedure and treatment not carried out due to patient leaving prior to being seen by health care provider
CPT/HCPCS: 36415; 80053; 85025; 99281